=== PATIENT | female | born 1975 | race Two or more races ===

== ENCOUNTER 2020-06-21 23:21 | Emergency (ER) | payer SELFPAY ==
[~2020-06-21] VITALS: Ht 162.6 cm; Wt 59.0 kg
[2020-06-22] MEDS ORDERED: cefTRIAXone SOD 1,000 MG VL IM ONE (01:30)
[2020-06-22] MEDS ORDERED: KETOROLAC TROMETH 60MG/2ML VIAL IM ONE (01:30)
[2020-06-22] MEDS ORDERED: BACITRACIN TOP OINT 1 UD PKG TOP ONE (01:30)
[2020-06-22] MEDS ORDERED: ALPRAZolam 0.5 MG TAB PO ONE (01:45)
[2020-06-22 02:22] VITALS: BP 118/69
== END 2020-06-22 02:26 | disposition home or self-care (01) ==
LOC: ER 23:25
DX: S01.551A Open bite of lip, initial encounter (principal); S01.85XA Open bite of other part of head, initial encounter; W54.0XXA Bitten by dog, initial encounter; Y93.89 Activity, other specified; Y92.89 Other specified places as the place of occurrence of the external cause; Y99.8 Other external cause status
CPT/HCPCS: 96372; 99284; J0696; J1885